=== PATIENT | male | born 1985 ===

== ENCOUNTER 2019-11-30 05:08 | Emergency (ER) | payer OTHER ==
[2019-11-30] MEDS ORDERED: Diphtheria,Pertussis(Acell),Tetanus Vaccine 0.5 ML Syringe IM ONE (05:28)
[2019-11-30] MEDS ORDERED: Bacitracin/Neomycin/Polymyxin B Oint 0.9 GM U/D Packet TOP ONE (05:30)
[2019-11-30] MEDS ORDERED: Bupivacaine 0.5% 10 ML SDV INJECT ONE (05:35)
--- NOTE | 2019-11-30 05:58 | EDM.PDOC ---
ED HPI GENERAL MEDICAL PROBLEM - General Chief Complaint: Upper Extremity Injury/Pain Stated Complaint: crush injury Time Seen by Provider: 11/30/19 05:34 Source of Information: Reports: Patient History Limitations: Reports: No Limitations - History of Present Illness INITIAL COMMENTS - FREE TEXT/NARRATIVE: Right ring finger caught in clamp at work. Wearing heavy gloves at time. Pain in tip of finger. Some bleeding Treatments HOSE TURNER: Reports: Dressing(s) Right 4th digit Pain Score (Numeric/FACES): 10 - Related Data Allergies Allergy/AdvReac Type Severity Reaction Status Date / Time No Known Allergies Allergy Verified 11/30/19 05:22 Home Meds: Home Meds RX: Clindamycin HCl 150 mg PO DAILY 11/30/19 [History] Past Medical History - Past Health History Medical/Surgical History: Denies Medical/Surgical History Psychiatric History: Reports: None Social & Family History - Tobacco Use Smoking Status *Q: Never Smoker Review of Systems - Review of Systems Review Of Systems: See Below Musculoskeletal: Reports: Other (right 4th finger injury. Some pain right 3rd finger also) ED EXAM, GENERAL - Physical Exam Exam: See Below Exam Limited By: No Limitations General Appearance: Alert, WD/WN, Mild Distress Eye Exam: Bilateral Eye: EOMI, PERRL Ears: Hearing Grossly Normal Nose: No: Nasal Deformity Throat/Mouth: Normal Voice, No Airway Compromise Head: Atraumatic, Normocephalic Neck: Supple Respiratory/Chest: No Respiratory Distress Extremities: Other (Exam right hand shows avulsion of skin lateral to nail of 4th finger. No bruising under nail. No deformity. Patient unable to wiggle distal IP joint of finger. No significant swelling noted. Tender with palaption distal half of finger. No obvious deeper cut accompanying skin avulsion. Remaining fingers have good ROM/atraumatic in appearance. Palm/wrist unremarkable. ) Neurological: Alert, Oriented, Normal Cognition, Normal Gait Psychiatric: Normal Affect, Normal Mood Skin Exam: Warm Course - Vital Signs Last Recorded V/S: Last Vital Signs Temp 36.7 C 11/30/19 05:18 Pulse 70 11/30/19 05:18 Resp 20 11/30/19 05:18 BP 140/88 11/30/19 05:18 Pulse Ox 99 11/30/19 05:18 - Orders/Labs/Meds Orders: Active Orders 24 hr Category Date Time Status Vaccines to be Administered [RC] PER UNIT ROUTINE Care 11/30/19 05:28 Active Fingers Fourth Digit Rt F8 [CR] Stat Exams 11/30/19 05:27 Ordered Fingers Third Digit Rt F7 [CR] Stat Exams 11/30/19 05:27 Ordered Meds: Medications Discontinued Medications Generic Name Dose Route Start Last Admin Trade Name Kaleb PRN Reason Stop Dose Admin Bupivacaine HCl 10 ml 11/30/19 05:35 11/30/19 05:42 Sensorcaine-Mpf 0.5% INJECT 11/30/19 05:36 10 ml ONETIME ONE Administration Diphtheria/Tetanus/Acell Pertussis 0.5 ml 11/30/19 05:28 11/30/19 05:41 Boostrix IM 11/30/19 05:29 0.5 ml .ONCE ONE Administration Lidocaine HCl 5 ml 11/30/19 05:35 11/30/19 05:42 Xylocaine-Mpf 1% INJECT 11/30/19 05:36 5 ml ONETIME ONE Administration Neomycin/Polymyxin/Bacitracin 1 each 11/30/19 05:30 11/30/19 05:41 Triple Antibiotic Oint TOP 11/30/19 05:31 1 each ONETIME ONE Administration - Re-Assessments/Exams Free Text/Narrative Re-Assessment/Exam: 11/30/19 06:06 Xray confirmed minimally displaced fracture distal phalanx 4th right finger. No obvious open fracture noted. Wound appears consistent with skin avulsion. Will cover with Keflex as precaution. Suturing not indicated. Nursing staff applied dressing after finger injected with combination of 80% Marcaine 0.5% and 20% Lidocaine 0.1%. 3cc on each side of base of finger. This resolved patient's pain complaint. Wound care reviewed. Follow up as needed if there are problems. Follow up Wednesday for recheck at [facility] in [place]. Further restrictions as needed otherwise at that time. Departure - Departure Time of Disposition: 05:53 Disposition: Home, Self-Care 01 Condition: Good Clinical Impression: Phalanx, distal fracture of finger Qualifiers: Encounter type: initial encounter Finger: ring finger Fracture type: closed Fracture alignment: nondisplaced Laterality: right Qualified Code(s): S62.664A - Nondisplaced fracture of distal phalanx of right ring finger, initial encounter for closed fracture Avulsion of skin of finger Qualifiers: Encounter type: initial encounter Qualified Code(s): S61.209A - Unspecified open wound of unspecified finger without damage to nail, initial encounter - Discharge Information *PRESCRIPTION DRUG MONITORING PROGRAM REVIEWED*: Not Applicable *COPY OF PRESCRIPTION DRUG MONITORING REPORT IN PATIENT JACK: Not Applicable Referrals: PCP,Unknown [Primary Care Provider] - Forms: ED Department Discharge, ED Return to Work/School Form Additional Instructions: Take the antibiotics we gave you, one tablet every 12 hours for 6 days. Use Ibuprofen or Aleve for pain as needed, you can also use Tylenol. Keep wound clean, apply topical antibiotic twice daily. Follow up at [facility] on Wednesday at [place] for recheck. Further work restrictions as needed at that time. Follow up otherwise as needed if you have problems/concerns such as worsening pain/redness/signs of infection. Sepsis Event Note (ED) - Evaluation Sepsis Screening Result: No Definite Risk - Focused Exam Vital Signs: Vital Signs Temp Pulse Resp BP Pulse Ox 11/30/19 05:18 36.7 C 70 20 140/88 99 - My Orders Last 24 Hours: My Active Orders 11/30/19 05:27 Fingers Fourth Digit Rt F8 [CR] Stat Fingers Third Digit Rt F7 [CR] Stat 11/30/19 05:28 Vaccines to be Administered [RC] PER UNIT ROUTINE - Assessment/Plan Last 24 Hours: My Active Orders 11/30/19 05:27 Fingers Fourth Digit Rt F8 [CR] Stat Fingers Third Digit Rt F7 [CR] Stat 11/30/19 05:28 Vaccines to be Administered [RC] PER UNIT ROUTINE
== END 2019-11-30 06:25 | disposition home or self-care (01) ==
LOC: LL.ED 05:08
DX: S62.664A Nondisplaced fracture of distal phalanx of right ring finger, initial encounter for closed fracture (principal); Z23 Encounter for immunization; W23.0XXA Caught, crushed, jammed, or pinched between moving objects, initial encounter; Y92.89 Other specified places as the place of occurrence of the external cause; Y99.0 Civilian activity done for income or pay
CPT/HCPCS: 73140-F7; 90471; 90715; 99283; 99283-25; J2001; J3490